=== PATIENT | female | born 1935 ===

== ENCOUNTER 2017-05-13 11:25 | Outpatient (CLI) | payer OTHER ==
[~2017-05-13 11:25] MED LIST: DICLOFENAC POTA50 MG PO; TIZANIDINE HCL2 MG PO
== END 2017-05-13 15:34 | disposition home or self-care (01) ==
LOC: RAD 11:25
DX: S39.012A Strain of muscle, fascia and tendon of lower back, initial encounter (principal); M70.62 Trochanteric bursitis, left hip

== ENCOUNTER → 2017-08-30 | Emergency (ER) | payer OTHER ==
[~2017-08-30] VITALS: Ht 157.5 cm; Wt 83.5 kg
== END | disposition home or self-care (01) ==
LOC: ER 13:43
DX: J06.9 Acute upper respiratory infection, unspecified (principal); J40 Bronchitis, not specified as acute or chronic; J11.1 Influenza due to unidentified influenza virus with other respiratory manifestations

== ENCOUNTER 2018-02-28 14:12 | Emergency (ER) | payer OTHER ==
[~2018-02-28] VITALS: Ht 152.4 cm; Wt 68.0 kg
== END 2018-02-28 20:40 | disposition home or self-care (01) ==
LOC: ER 14:12
DX: S30.0XXA Contusion of lower back and pelvis, initial encounter (principal); S19.89XA Other specified injuries of other specified part of neck, initial encounter; G30.8 Other Alzheimer's disease; F02.80 Dementia in other diseases classified elsewhere, unspecified severity, without behavioral disturbance, psychotic disturbance, mood disturbance, and anxiety; W06.XXXA Fall from bed, initial encounter; Y93.89 Activity, other specified; Y92.018 Other place in single-family (private) house as the place of occurrence of the external cause; Y99.8 Other external cause status

== ENCOUNTER 2018-05-03 09:57 | Inpatient (IN) | payer OTHER ==
[~2018-05-03] VITALS: Ht 162.6 cm; Wt 129.3 kg
[2018-05-03] MEDS ORDERED: OMEPRAZOLE20 MG (10:55)
[2018-05-03] MEDS ORDERED: AMLODIPINE BESY10 MG (10:56)
[2018-05-03] MEDS ORDERED: LOSARTAN POTAS100 MG (10:56)
[2018-05-04] MEDS ORDERED: ISORDIL10 MG PO (18:27)
[2018-05-04] MEDS ORDERED: CLOPIDOGREL BIS75 MG PO (18:27)
[2018-05-04] MEDS ORDERED: LOPRESSOR25 MG PO (18:28)
[2018-05-04] MEDS ORDERED: LOSARTAN POTASS50 MG PO (18:28)
[2018-05-04] MEDS ORDERED: NAMENDA XR28 MG PO (18:29)
[2018-05-04] MEDS ORDERED: ARICEPT10 MG PO (18:29)
[2018-05-04] MEDS ORDERED: SIMVASTATIN20 MG PO (18:29)
[2018-05-04] MEDS ORDERED: ZANTAC150 MG PO (18:30)
== END 2018-05-11 19:27 | disposition home or self-care (01) | DRG 558 ==
LOC: ER 09:57 → MEDJ 17:20
PROC: 8E0ZXY6 Isolation (ICD-10-PCS; principal; 2018-05-03)
PROC: BT43ZZZ Ultrasonography of Bilateral Kidneys (ICD-10-PCS; 2018-05-03)
PROC: 3E0F7GC Introduction of Other Therapeutic Substance into Respiratory Tract, Via Natural or Artificial Opening (ICD-10-PCS; 2018-05-07)
DX: M62.82 Rhabdomyolysis (principal); N17.8 Other acute kidney failure; F02.81 Dementia in other diseases classified elsewhere, unspecified severity, with behavioral disturbance; G30.8 Other Alzheimer's disease; R27.8 Other lack of coordination; J40 Bronchitis, not specified as acute or chronic; B96.29 Other Escherichia coli [E. coli] as the cause of diseases classified elsewhere